=== PATIENT | female | born 1990 | race Caucasian/White ===

== ENCOUNTER → 2022-03-10 11:57 | Outpatient (CLI) | payer BC, SELFPAY ==
--- NOTE | ~2022-03-10 | MR_ITS ---
EXAMINATION: MR brain/brain stem wo/w con DATE: 03/10/2022 12:54 INDICATION: Loss of vision. Dizziness. TECHNIQUE: Magnetic resonance imaging (MRI) of the brain and brainstem was performed without and with 12 mL MultiHance intravenous contrast. COMPARISON: None. FINDINGS: There is a 7 x 12 x 5 mm mass in the pituitary that demonstrates increased T1-weighted sign al intensity. There is no acute ischemic infarct or intracranial hemorrhage. The ventricles are erica l in size. The orbits are normal. The paranasal sinuses are clear. The mastoid air cells are normal. 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 Reviewed, dictated and finalized at location A.
== END ==
PROVIDERS: PCP Physician Assistant Medical; Visit Provider Physician Assistant Medical
DX: H54.7 Unspecified visual loss (principal); R42 Dizziness and giddiness
CPT/HCPCS: 70553; A9577

== ENCOUNTER → 2023-04-08 10:44 | Outpatient (CLI) | payer BC, SELFPAY ==
--- NOTE | ~2023-04-08 | MR_ITS ---
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 TECHNIQUE: Magnetic resonance imaging (MRI) of the brain and brainstem was performed without and with 12 mL MultiHance intravenous contrast. COMPARISON: Brain MRI 03/10/2022 FINDINGS: The pituitary is normal in size with height of 7 mm and concave superior margin. There is a 4 mm cyst between the anterior pituitary and posterior pituitary. There is no acute ischemic infarct or intracranial hemorrhage. The ventricles are normal in size. There is mild mucosal thickening in s phenoid sinus. The mastoid air cells are normal. The orbits are normal. IMPRESSION: 1. 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 Reviewed, dictated and finalized at location E.
== END ==
DX: D49.7 Neoplasm of unspecified behavior of endocrine glands and other parts of nervous system (principal)
CPT/HCPCS: 70553; A9577

== ENCOUNTER 2024-05-01 15:46 | Outpatient (CLI) | payer BC, SELFPAY ==
--- NOTE | ~2024-05-01 | MR_ITS ---
MR brain/brain stem wo/w con Ordering provider: Juan Ramon Hampton History: 33 years Female with . pituitary tumor . Comparison: April 08, 2023 Technique: MRI brain was performed with and without contrast. FINDINGS: BONES: Normal. CRANIOCERVICAL JUNCTION: normal. PITUITARY: Tiny hypointensity seen anterior to the posterior pituitary which is showing no enhancemen t in the late images suggestive of an adenoma versus a cyst and appears slightly smaller than the pre vious study. Follow-up advised. MAJOR INTRACRANIAL VESSELS: Normal flow void. OPTIC NERVES AND CRANIAL NERVES VII AND VIII COMPLEXES: Grossly normal. BRAIN PARENCHYMA AND CSF SPACES: No visible white matter disease. The brainstem and cerebellum are n ormal. No acute or chronic intracranial hemorrhage. No extra axial fluid collections. Diffusion weigh cj and ADC mapping images reveal no recent ischemia. No midline shift or mass effect. No abnormal co ntrast enhancement. PARANASAL SINUSES: Normal. MASTOIDS: Normal SUPERFICIAL/SURROUNDING SOFT TISSUES: Normal. IMPRESSION: 1. No acute intracranial process. 2. Hyperintensity seen in the pituitary gland is slightly smaller than the previous study and measur es 1.3 mm. otherwise no significant change. 3. No abnormal enhancement seen in the brain. Reviewed, dictated and finalized at location A. IMPRESSION: 1. No acute intracranial process. 2. Hyperintensity seen in the pituitary gland is slightly smaller than the pre vious study and measures 1.3 mm. otherwise no significant change. 3. No abnormal enhancement seen in the brain.
== END 2024-05-01 15:47 | disposition home or self-care (01) ==
LOC: MICIMG 15:47
DX: D49.7 Neoplasm of unspecified behavior of endocrine glands and other parts of nervous system (principal)
CPT/HCPCS: 70553; A9577

== ENCOUNTER 2024-06-02 08:05 | Outpatient (CLI) | payer BC, SELFPAY ==
--- NOTE | ~2024-06-02 | XR_ITS ---
EXAM: XR shoulder RT min 2V DATE: 06/02/2024 08:51 HISTORY: Right shoulder pain . COMPARISON: None available. FINDINGS: Normal mineralization. No fracture or dislocation. No lytic or blastic lesion. Joint space s are maintained. No erosion or periosteal change. Soft tissues within normal limits. IMPRESSION: No acute osseous finding in the right shoulder. Reviewed, dictated and finalized at location K. CAL FIELD REPRESENTATIVE
--- NOTE | ~2024-06-02 | XR_ITS ---
EXAM: XR_[id number]_CR DATE: 06/02/2024 08:51 HISTORY: Cervicalgia . COMPARISON: None available. FINDINGS: Craniocervical association and atlantoaxial joint are aligned. Mild degenerative change at the atlantodental interval. No prevertebral soft tissue swelling. Mild reversal of the cervical lord osis centered at C4. 2 mm anterolisthesis at C2-3. 1 mm anterolisthesis at C3-4 Vertebral body height s are maintained. Mild disc space narrowing and marginal osteophytosis at C4-5. Normal facets and pos terior elements. IMPRESSION: Grade 1 anterolistheses at C2-3 and C3-4. Mild degenerative disc disease at C4-5. Reviewed, dictated and finalized at location K. NING DEVELOPMENT SPECIALIST IMPRESSION: Grade 1 anterolistheses at C2-3 and C3-4. Mild degenerative disc di sease at C4-5.
== END 2024-06-02 08:06 | disposition home or self-care (01) ==
DX: M25.511 Pain in right shoulder (principal); M50.321 Other cervical disc degeneration at C4-C5 level
CPT/HCPCS: 72040; 73030